=== PATIENT | female | born 1995 | race Caucasian/White ===

== ENCOUNTER 2017-03-10 10:32 | Emergency (ER) | payer OTHER ==
[2017-03-10] MEDS ORDERED: NS 1,000 ML IV ONE (10:34)
--- NOTE | 2017-03-10 10:41 | EDPHY ---
HPI/HX/ROS/PE/MDM Narrative: CHIEF COMPLAINT: Fainted twice. HPI: This patient is a 21 y/o female arriving today complaining of two episodes of syncope this morning. She reports she felt fine upon waking, but she began feeling faint while waiting in line at the [facility] with friends. She describes sudden onset of "wobbly legs" and symptoms similar to prior episodes of fainting. She states she collapsed and struck the right side of her face on the ground and states she remembers the entire event. Following this event, she reports standing too quickly and passing out again. She denies chest pain, dyspnea, or palpitations. She denies recent illness and family history of cardiac problems. Last menstrual period ended yesterday. She notes alcohol use last night, but denies feeling hungover. REVIEW OF SYSTEMS: Aside from elements discussed in the HPI, a comprehensive 10- point review of systems was reviewed and is negative. PMH: Hypercholesterolemia SOCIAL HISTORY: Friend at bedside. [employer] Student. PHYSICAL EXAM: General:Patient is alert, in no acute distress. ENT:Eyes are normal to inspection. ENT inspection normal. Neck: Normal inspection. Full range of motion. Respiratory:No respiratory distress. Breath sounds normal bilaterally. Cardiovascular: Regular rate and rhythm. Strong peripheral pulses. Normal cap refill. Abdomen:The abdomen is nontender to palpation. There are no peritoneal signs. Back: Normal to inspection. No tenderness to palpation. Skin: Normal color. No rash. Warm and dry. Extremities: Normal appearance. Full range of motion. Neuro: Oriented x3. Normal motor function. Normal sensory function. ED Course: This patient is a 21 y/o female who presents today following two episodes of syncope. Her exam is unremarkable. She does not currently feel symptomatic. Plan for EKG, IV fluids, and labs including CBC, CHEM, and BHCG. The 12 lead EKG was interpreted by myself. EKG shows sinus rhythm See hard copy and/or "tracemaster" electronic copy for interpretation. Labs are unremarkable. Patient feels improved after IV fluids. She is able to walk unassisted without recurrent symptoms. She feels ready for discharge home. Recommended follow up with her PCP this week, and given specific return precautions. The patient is comfortable with this plan. MDM: This is a healthy young female who presents after syncope that occurred while waiting in line. Her workup is negative, her ECG shows no sign of arrhythmia or underlying heart disease, she does not complain of chest pain and she is not . There is no evidence of anemia. After IV hydration in the ED, the patient is asymptomatic. She admits to drinking and marijuana use last night, so I suspect there is some element of dehydration. She has no family history of sudden or connective tissue disorder. - Data Points Laboratory Results: Laboratory Results 03/10/17 10:51 03/10/17 10:51 03/10/17 03/10/17 03/10/17 10:51 10:51 10:51 WBC 8.91 10^3/uL 10^3/uL (3.80-9.50) RBC 4.33 10^6/uL 10^6/uL (4.18-5.33) Hgb 13.0 g/dL g/dL (12.6-16.3) Hct 38.6 % % (38.0-47.0) MCV 89.1 fL fL (81.5-99.8) MCH 30.0 pg pg (27.9-34.1) MCHC 33.7 g/dL g/dL (32.4-36.7) RDW 12.4 % % (11.5-15.2) Plt Count 315 10^3/uL 10^3/uL (150-400) MPV 8.5 fL L fL (8.7-11.7) Neut % (Auto) 47.9 % % (39.3-74.2) Lymph % (Auto) 41.9 % % (15.0-45.0) [place] % (Auto) 7.7 % % (4.5-13.0) Eos % (Auto) 1.5 % % (0.6-7.6) Baso % (Auto) 0.7 % % (0.3-1.7) Nucleat RBC Rel Count 0.0 % % (0.0-0.2) Absolute Neuts (auto) 4.27 10^3/uL 10^3/uL (1.70-6.50) Absolute Lymphs (auto) 3.73 10^3/uL H 10^3/uL (1.00-3.00) Absolute Monos (auto) 0.69 10^3/uL 10^3/uL (0.30-0.80) Absolute Eos (auto) 0.13 10^3/uL 10^3/uL (0.03-0.40) Absolute Basos (auto) 0.06 10^3/uL 10^3/uL (0.02-0.10) Absolute Nucleated RBC 0.00 10^3/uL 10^3/uL (0-0.01) Immature Gran % 0.3 % % (0.0-1.1) Immature Gran # 0.03 10^3/uL 10^3/uL (0.00-0.10) Sodium 141 mEq/L mEq/L (134-144) Potassium 4.0 mEq/L mEq/L (3.5-5.2) Chloride 104 mEq/L mEq/L (97-110) Carbon Dioxide 24 mEq/l mEq/l (22-31) Anion Gap 13 mEq/L mEq/L (8-16) BUN 11 mg/dL mg/dL (7-23) Creatinine 0.8 mg/dL mg/dL (0.6-1.0) Estimated GFR > 60 Glucose 88 mg/dL mg/dL (70-100) Calcium 9.8 mg/dL mg/dL (8.5-10.4) Beta HCG, Qual NEGATIVE Medications Given: Discontinued Medications Sodium Chloride (Ns) 1,000 mls @ 0 mls/hr IV ONCE ONE PRN Reason: Wide Open Stop: 03/10/17 10:35 Last Admin: 03/10/17 10:53 Dose: 1,000 mls General Time Seen by Provider: 03/10/17 10:34 Initial Vital Signs: Initial Vital Signs Temperature (C) 36.5 C 03/10/17 10:35 Heart Rate 96 03/10/17 10:35 Respiratory Rate 18 03/10/17 10:35 Blood Pressure 104/57 L 03/10/17 10:35 O2 Sat (%) 98 03/10/17 10:35 O2 Delivery Mode Room Air Allergies/Adverse Reactions: amoxicillin Allergy (Intermediate, Verified 03/10/17 10:39) Hives Penicillins Allergy (Intermediate, Verified 03/10/17 10:39) Hives Home Medications: Medication Instructions Recorded Control Pills 03/10/17 Departure - Departure Disposition: Home, Routine, Self-Care Clinical Impression: Syncope and collapse Condition: Good Instructions: Syncope (ED) Additional Instructions: 1. Increase fluid intake. 2. Follow up with your primary care provider this week. 3. Return to the ED for chest pain, shortness of breath, or recurrent fainting. Referrals: ELMER Araujo,. [Primary Care Provider] - As per Instructions Report Scribed for: Rogelio Miller Report Scribed by: Allie Hall Date of Report: 03/10/17 Time of Report: 10:41 Physician Review and Approval Statement: Portions of this note were transcribed by an ED scribe. I personally performed the history, physical exam, and medical decision making; and confirm the accuracy of the information in the transcribed note.
--- NOTE | 2017-03-10 10:49 | CPEKG ---
Heart Rate: 82 RR Interval: 732 P-R Interval: 164 QRSD Interval: 78 QT Interval: 376 QTC Interval: 439 P [place]: 52 QRS [place]: 69 T Wave [place]: 9 EKG Severity - NORMAL ECG - EKG Impression: SINUS RHYTHM Electronically Signed By: Rogelio Miller 10-Mar-2017 14:47:00
[2017-03-10 10:59] LABS: % IMMATURE GRANULYOCYTES 0.3 % (0.0-1.1); ABSOLUTE IMMATURE GRANULOCYTES 0.03 10^3/uL (0.00-0.10); ADD DIFF? NO; ADD MORPH? NO; ADD SCAN? NO; ATYPICAL LYMPHOCYTE FLAG 50 (0-99); FRAGMENT RBC FLAG 0 (0-99); HEMATOCRIT 38.6 % (38.0-47.0); LEFT SHIFT FLG 0 (0-99); LIPEMIA HEMOLYSIS FLAG 80 (0-99); MEAN CELL HEMOGLOBIN CONCENTR. 33.7 g/dL (32.4-36.7); MEAN CELL VOLUME 89.1 fL (81.5-99.8); MEAN PLATELET VOLUME 8.5 fL (8.7-11.7); PLATELET CLUMPS FLAG 30 (0-99); PLATELET COUNT 315 10^3/uL (150-400); RED BLOOD CELL COUNT 4.33 10^6/uL (4.18-5.33); RED CELL DISTRIBUTION WIDTH 12.4 % (11.5-15.2)
[2017-03-10 11:10] LABS: ANION GAP 13 mEq/L (8-16); CALCIUM 9.8 mg/dL (8.5-10.4); CARBON DIOXIDE 24 mEq/l (22-31); CHLORIDE 104 mEq/L (97-110); CREATININE 0.8 mg/dL (0.6-1.0); GLOMERULAR FILTRATION RATE > 60; GLUCOSE 88 mg/dL (70-100); SODIUM 141 mEq/L (134-144)
[2017-03-10 11:57] VITALS: BP 121/74; PULSE 79; RESP 16; TEMP 98.2; O2SAT 96
== END 2017-03-10 11:57 | disposition home or self-care (01) ==
DX: R55 Syncope and collapse (principal)